=== PATIENT | male | born 1980 | race Caucasian/White ===

== ENCOUNTER 2019-03-18 13:50 | Emergency (ER) | payer OTHER ==
[2019-03-18 15:51] LABS: Absolute Lymphocytes (CBC) 2.4 K/uL (0.7-4.9); Basophils % 0.8 % (0-1.3); Hematocrit 45.7 % (39.6-49.0); Lymphocytes % 32.3 % (15.3-44.8); MPV 8.6 fL (7.6-11.3); RBC Red Blood Cell Count 5.13 M/uL (4.33-5.43)
[2019-03-18 16:11] LABS: Protime INR 0.95
[2019-03-18 16:12] LABS: ALT/SGPT 52 U/L (12-78); AST/SGOT 25 U/L (15-37); Alkaline Phosphatase 76 U/L (45-117); BUN Blood Urea Nitrogen 15 mg/dL (7-18); Bicarbonate 30 mmol/L (21-32); Bilirubin Direct 0.2 mg/dL (0-0.2); Bilirubin Total 0.6 mg/dL (0.2-1.0); Glucose Level 90 mg/dL (74-106); Magnesium 2.2 mg/dL (1.8-2.4); NT PRO-BNP 45 pg/mL (<125); Potassium 4.3 mmol/L (3.5-5.1); Protein, Total 7.8 g/dL (6.4-8.2); Sodium Level 142 mmol/L (136-145); Troponin (Emerg Dept Use Only) < 0.02 ng/mL (0.0-0.045)
--- NOTE | 2019-03-18 16:32 | RAD REPORT ---
EXAM DESCRIPTION: Evangelista Single View03/18/2019 3:45 pm CLINICAL HISTORY: Chest pain COMPARISON: none FINDINGS: The lungs appear clear of acute infiltrate. The heart is normal size IMPRESSION: No acute abnormalities displayed
--- NOTE | 2019-03-18 16:36 | ER ---
Nurse's Notes [facility] Name: Ilya Graves Age: 38 yrs Sex: Male : 1980 Arrival Date: 03/18/2019 Time: 13:54 Bed 27 Private MD: Diagnosis: Chest pain, unspecified Presentation: 03/18 13:56 Presenting complaint: Patient states: Left sided chest pain that radiates to his left aj1 shoulder for the past 2 weeks. Denies shortness of breath, palpitations, nausea. Transition of care: patient was not received from another setting of care. Onset of symptoms was 2018. Risk Assessment: Do you want to hurt yourself or someone else? Patient reports no desire to harm self or others. Initial Sepsis Screen: Does the patient meet any 2 criteria? No. Patient's initial sepsis screen is negative. Does the patient have a suspected source of infection? No. Patient's initial sepsis screen is negative. Care prior to arrival: None. 13:56 Method Of Arrival: Ambulatory [facility] 13:56 Acuity: KAJAL 3 aj1 Triage Assessment: 13:59 General: Appears in no apparent distress. comfortable, Behavior is calm, cooperative, aj1 appropriate for age. Pain: Complains of pain in anterior aspect of left upper chest Pain radiates to left trapezius Pain currently is 3 out of 10 on a pain scale. at worst was 8 out of 10 on a pain scale. Is intermittent. Pain: Quality of pain is described as tightness. Neuro: Level of Consciousness is awake, alert, obeys commands, Oriented to person, place, time, situation. Cardiovascular: Patient's skin is warm and dry. Respiratory: Airway is patent Respiratory effort is even, unlabored, Respiratory pattern is regular, symmetrical. Historical: - Allergies: 13:59 No Known Allergies; aj1 - Home Meds: 13:59 None [Active]; aj1 - PMHx: 13:59 None; aj1 - PSHx: 13:59 None; aj1 - Immunization history:: Flu vaccine is not up to date. - Social history:: Smoking status: Patient/guardian denies using tobacco. - Ebola Screening: : Patient denies travel to an Ebola-affected area in the 21 days before illness onset. Screenin:10 Abuse screen: Denies threats or abuse. Nutritional screening: No deficits noted. aa5 Tuberculosis screening: No symptoms or risk factors identified. Fall Risk None identified. Assessment: 15:10 General: Appears comfortable, Behavior is calm, cooperative. Pain: Complains of pain in aa5 mid-sternal area Pain radiates to left arm and back Pain currently is 0 out of 10 on a pain scale. Quality of pain is described as heavy, pressure, Pain began 4-5 days ago Is intermittent. Neuro: Level of Consciousness is awake, alert, obeys commands, Oriented to person, place, time, situation. Cardiovascular: Heart tones S1 S2 present Edema is absent. Rhythm is regular. Respiratory: Airway is patent Respiratory effort is even, unlabored, Respiratory pattern is regular, symmetrical, Breath sounds are clear bilaterally. Denies shortness of breath. GI: Abdomen is round non-distended, Bowel sounds present X 4 quads. Abd is soft and non tender X 4 quads. Patient currently denies nausea, vomiting. : No signs and/or symptoms were reported regarding the genitourinary system. EENT: No signs and/or symptoms were reported regarding the EENT system. Derm: Skin is pink, warm \T\ dry. Musculoskeletal: Range of motion: intact in all extremities. 16:10 Reassessment: Pt resting in bed with eyes closed, respirations even and unlabored. Pt aa5 easy to awaken to verbal stimuli. Pt states any complaints at this time. Awaiting lab results. NSR on monitor. Denies pain at this time. Call stevenson remains within reach. . Vital Signs: 13:59 BP 153 / 95; Pulse 81; Resp 18; Temp 98.2; Pulse Ox 97% on R/A; Weight 106.59 kg (R); aj1 Height 5 ft. 8 in. (172.72 cm) (R); Pain 3/10; 13:59 Body Mass Index 35.73 (106.59 kg, 172.72 cm) aj1 ED Course: 13:54 Patient arrived in ED. ag5 13:59 Triage completed. aj1 13:59 Arm band placed on. EKG completed in triage. Results shown to MD. aj1 15:10 [facility]C [facility] la1 15:10 Almas Nunez MD is Attending Physician. la1 15:10 Patient has correct armband on for positive identification. Placed in gown. Bed in low aa5 position. Call light in reach. Side rails up X2. environmental monitoring specialist on. Pulse ox on. NIBP on. 15:13 Bella Roca, RN is Primary Nurse. aa5 15:30 Inserted saline lock: 20 gauge in right antecubital area, using aseptic technique. tm3 Blood collected. 15:36 Initial lab(s) drawn, by me, sent to lab. tm3 15:46 XRAY Chest (1 view) In Process Unspecified. EDMS 16:45 IV discontinued, intact, bleeding controlled, No redness/swelling at site. Pressure aa5 dressing applied. 16:45 No provider procedures requiring assistance completed. aa5 Administered Medications: No medications were administered Outcome: 16:36 Discharge ordered by . la1 16:45 Discharged to home ambulatory, with significant other. aa5 16:45 Condition: stable 16:45 Discharge instructions given to patient, Instructed on discharge instructions, follow up and referral plans. Demonstrated understanding of instructions, follow-up care. 16:48 Patient left the ED. rn Signatures: Dispatcher [employer] EDMS Candis Ruiz, RN RN aj1 Johnson Lizarraga tm3 Almas Nunez MD MD rn Calderon, Audri, RN RN aa5 Jovan Solano, MAIL ROOM-C MAIL ROOM-Love Blunt 5 Corrections: (The following items were deleted from the chart) 18:40 17:45 IV discontinued, intact, bleeding controlled, No redness/swelling at site. aa5 Pressure dressing applied, aa5
--- NOTE | 2019-03-18 16:37 | EDPHYS ---
Physician Documentation [facility] Name: Ilya Graves Age: 38 yrs Sex: Male : 1980 Arrival Date: 03/18/2019 Time: 13:54 Bed 27 Private MD: ED Physician Almas Nunez HPI: 03/18 15:28 This 38 yrs old Male presents to ER via Ambulatory with complaints of Chest la1 Discomfort. 15:28 Onset: The symptoms/episode began/occurred 1 week(s) ago. la1 15:39 Associated signs and symptoms: Pertinent positives: chest pain, Pertinent negatives: la1 fever, shortness of breath, vomiting. Modifying factors: The patient symptoms are alleviated by nothing, the patient symptoms are aggravated by nothing. pt reports chest pain for the last week, has flown to [place] in the last month, reports he has been under a lot of stress and is not sure that it isnt related to anxiety as well. Historical: - Allergies: 13:59 No Known Allergies; aj1 - Home Meds: 13:59 None [Active]; aj1 - PMHx: 13:59 None; aj1 - PSHx: 13:59 None; aj1 - Immunization history:: Flu vaccine is not up to date. - Social history:: Smoking status: Patient/guardian denies using tobacco. - Ebola Screening: : Patient denies travel to an Ebola-affected area in the 21 days before illness onset. ROS: 15:40 Constitutional: Negative for fever, chills, and weight loss, Eyes: Negative for injury, la1 pain, redness, and discharge, ENT: Negative for injury, pain, and discharge, Neck: Negative for injury, pain, and swelling, Cardiovascular: + for chest pain that radiates to left shoulder and arm Respiratory: Negative for shortness of breath, cough, wheezing, and pleuritic chest pain, Abdomen/GI: Negative for abdominal pain, nausea, vomiting, diarrhea, and constipation, Back: Negative for injury and pain, MS/Extremity: Negative for injury and deformity, Neuro: Negative for headache, weakness, numbness, tingling, and seizure. Exam: 15:40 Constitutional: This is a well developed, well nourished patient who is awake, alert, la1 and in no acute distress. Eyes: Pupils equal round and reactive to light, extra-ocular motions intact. Periorbital areas with no swelling, redness, or edema. ENT: Mucous membranes moist. Neck: Trachea midline, no thyromegaly or masses palpated, and no cervical lymphadenopathy. Supple, full range of motion without nuchal rigidity, or vertebral point tenderness. No Meningismus. Chest/axilla: Normal chest wall appearance and motion. Nontender with no deformity. No lesions are appreciated. Cardiovascular: Regular rate and rhythm with a normal S1 and S2. No gallops, murmurs, or rubs. Normal PMI, no JVD. No pulse deficits. Respiratory: Lungs have equal breath sounds bilaterally, clear to auscultation and percussion. No rales, rhonchi or wheezes noted. No increased work of breathing, no retractions or nasal flaring. Abdomen/GI: Soft, non-tender, with normal bowel sounds. No distension or tympany. No guarding or rebound. No evidence of tenderness throughout. Neuro: Awake and alert, GCS 15, oriented to person, place, time, and situation. Normal gait. 16:19 ECG was reviewed by the Attending Physician. la1 Vital Signs: 13:59 BP 153 / 95; Pulse 81; Resp 18; Temp 98.2; Pulse Ox 97% on R/A; Weight 106.59 kg (R); aj1 Height 5 ft. 8 in. (172.72 cm) (R); Pain 3/10; 13:59 Body Mass Index 35.73 (106.59 kg, 172.72 cm) aj1 MDM: 15:10 Patient medically screened. la1 16:33 Data reviewed: vital signs, nurses notes, lab test result(s), EKG, radiologic studies, la1 plain films, I have discussed the patient's presentation/case with the attending Emergency Department Physician; and as a result, I will discharge patient. Data interpreted: Pulse oximetry: on room air is 99 %. Interpretation: normal. Test interpretation: by ED physician or midlevel provider: ECG, plain radiologic studies. Counseling: I had a detailed discussion with the patient and/or guardian regarding: the presence of at least one elevated blood pressure reading (>120/80) during this emergency department visit, lab results, radiology results, the need for outpatient follow up, a family practitioner. Special discussion: Based on the patient's history, exam, and Dx evaluation, there is no indication for emergent intervention or inpatient Tx. It is understood by the patient/guardian that if the Sx's persist or worsen they need to return immediately for re-evaluation. I have referred the patient to see his PCP for further evaluation of high blood pressure. ED course: Pt with negative trop, normal ECG, no acute findings on CXR, DDIMER WNL with chest pain for one week. Pt to FU with PCP on , instructed to return to ED with worsening of sx. 03/18 15:24 Order name: Basic Metabolic Panel; Complete Time: 16:15 la03/18 15:24 Order name: CBC with Diff; Complete Time: 16:15 la03/18 15:24 Order name: LFT's; Complete Time: 16:15 la03/18 15:24 Order name: Magnesium; Complete Time: 16:15 la03/18 15:24 Order name: NT PRO-BNP; Complete Time: 16:15 la03/18 15:24 Order name: PT-INR; Complete Time: 16:15 la03/18 15:05 Order name: EKG Electrocardiogram EDOH 03/18 15:24 Order name: Troponin (emerg Dept Use Only); Complete Time: 16:15 la03/18 15:24 Order name: XRAY Chest (1 view) la 03/18 15:24 Order name: EKG; Complete Time: 15:25 la03/18 15:24 Order name: Cardiac monitoring; Complete Time: 15:27 03/18 15:24 Order name: EKG - Nurse/Tech; Complete Time: 16:07 03/18 15:24 Order name: IV Saline Lock; Complete Time: 16:07 la03/18 15:24 Order name: DD; Complete Time: 16:15 03/18 15:24 Order name: Labs collected and sent; Complete Time: 16:07 03/18 15:24 Order name: O2 Per Protocol; Complete Time: 16:07 03/18 15:24 Order name: O2 Sat Monitoring; Complete Time: 16:07 la EC:19 Rate is 68 beats/min. Rhythm is regular. QRS [place] is Normal. FL interval is normal. QRS la1 interval is normal. QT interval is normal. No Q waves. T waves are Normal. No ST changes noted. Clinical impression: Normal ECG. Reviewed by me. Administered Medications: No medications were administered Disposition: 17:45 Co-signature as Attending Physician, Almas Nunez MD. rn Disposition: 03/18/19 16:36 Discharged to Home. Impression: Chest pain, unspecified. - Condition is Stable. - Discharge Instructions: Nonspecific Chest Pain, Aspirin and Your Heart. - Work release form, Medication Reconciliation Form, Thank You Letter form. - Follow up: Private Physician; When: 2 - 3 days; Reason: Recheck today's complaints, Re-evaluation by your physician. - Problem is new. - Symptoms have improved. Signatures: Dispatcher [employer] EDCandis Boggs RN RN aj1 Almas Nunez MD MD rn Jovan Solano, NUT PACKER-C NUT PACKER-Cla1 Corrections: (The following items were deleted from the chart) 16:48 16:36 03/18/2019 16:36 Discharged to Home. Impression: Chest pain, unspecified. rn Condition is Stable. Forms are Medication Reconciliation Form, Thank You Letter, Antibiotic Education, Prescription Opioid Use. Follow up: Private Physician; When: 2 - 3 days; Reason: Recheck today's complaints, Re-evaluation by your physician. Problem is new. Symptoms have improved. la1
[2019-03-18 18:45] VITALS: BP 153/95; TEMP 98.2; O2SAT 97
--- NOTE | 2019-03-19 06:21 | EKG ---
Test Date: 2019-03-18 Test Time: 14:05:39 Travel Trailer Components Assembler: VINAY MEASUREMENT RESULTS: Intervals: Rate: 68 NM: 142 QRSD: 86 QT: 374 QTc: 397 [place]: P: 31 NM: 142 QRS: 86 T: 31 INTERPRETIVE STATEMENTS: Normal sinus rhythm Normal ECG No previous ECG available for comparison Electronically Signed On 03-19-19 06:20:42 CASINO GAMING INSPECTOR by Fred Galdamez
== END 2019-03-18 16:48 | disposition home or self-care (01) ==
LOC: ER 13:50
DX: R07.9 Chest pain, unspecified (principal)
CPT/HCPCS: 36415; 71045; 80048; 80076; 83735; 83880; 84484; 85025; 85379; 85610; 93005; 99284

== ENCOUNTER 2020-07-19 15:20 | Emergency (ER) | payer OTHER ==
--- OUTSIDE RECORDS SUMMARY | 2020-07-19 15:22 | XMS REPORT | Continuity of Care Document ---
:1980 Author Organization [facility] t Address [address] [place] [address] Care Team Providers Name Role Phone Tylor MCCORMACK, [place] Attending Clinician Provider, Urgent Care Attending Clinician Unavailable Doctor Unassigned, Name Attending Clinician Unavailable Ami MCCORMACK, T Attending Clinician Problems This patient has no known problems. Allergies, Adverse Reactions, Alerts This patient has no known allergies or adverse reactions. Medications This patient has no known medications. Procedures This patient has no known procedures. Encounters Start End Encounter Admission Attending Care Care Encounter Source Date/Time Date/Time Type Type Clinicians Facility Department ID 2020-07-19 2020-07-19 Telephone TARA Snider [id number] 00:00:00 00:00:00 [facility] [id number] [place] [id number] Professio [phone] nal 044 Office Building One 2020-07-05 2020-07-05 Urgent Provider, [facility] [id number] 16:40:01 17:00:01 [facility] [id number] Care [place] [id number] Professio [phone] nal 044 Office Building One 2020-07-05 2020-07-05 Letter Doctor HERNANDEZ [id number] 00:00:00 00:00:00 (Out) Un[facility]igned[facility] [id number] [facility] [id number] [id number] 2019-08-27 2019-08-27 [facility] [id number] 08:23:25 08:53:25 ne Visit Pinky Peralta [place] [id number] [place] [id number] Professio [phone] [address] 2019-08-15 2019-08-15 Orders Doctor MARY [id number] 00:00:00 00:00:00 Only Unassigned, [place] [id number] [place] [facility] [phone] 009 2019-08-04 2019-08-04 [facility] [id number] 00:00:00 00:00:00 [place] A [place] [id number] [place] [id number] Professio [phone] [address] 2019-08-03 2019-08-03 [facility] [id number] 00:00:00 00:00:00 [place] A [place] [id number] [place] [id number] Professio [phone] [address] 2019-08-01 2019-08-01 Telephone Tylor [place] [id number] 00:00:00 00:00:00 [facility] [id number] [facility] [id number] UNIT [phone] [facility] 2019-07-16 2019-07-16 Orders Doctor MARY [id number] 00:00:00 00:00:00 Only Unassigned, [facility] [id number] [facility] [id number] [id number] 2019-07-03 2019-07-03 Orders Doctor MARY [id number] 00:00:00 00:00:00 Only Unassigned, [facility] [id number] [facility] [phone] [id number] 2019-06-19 2019-06-19 Orders Doctor MARY [id number] 00:00:00 00:00:00 Only Unassigned, [facility] [id number] [facility] [id number] [id number] 2019-06-17 2019-06-17 Telephone Ami [facility] [id number] 00:00:00 00:00:00 Strahil T [place] [id number] [place] [id number] Professio [phone] nal 085 Building 2019-05-28 2019-05-28 [facility] [id number] 14:21:56 14:51:56 Visit Strahil T [place] [id number] [place] [id number] Professio [phone] nal 5 Building Results This patient has no known results.
--- NOTE | 2020-07-19 16:31 | RAD REPORT ---
EXAM DESCRIPTION: RAD - Chest Pa And Lat (2 Views) - 07/19/2020 4:21 pm CLINICAL HISTORY: COUGH Chest pain. COMPARISON: <Comparisons> FINDINGS: Mild bilateral interstitial lung opacities are present, greatest in the left base, most co mpatible with pulmonary infection/ bronchitis. The heart is normal in size. No displaced fractures.
--- NOTE | 2020-07-19 17:46 | ER ---
Nurse's Notes [facility] Name: Ilya Graves Age: 39 yrs Sex: Male : 1980 Arrival Date: 07/19/2020 Time: 15:23 Bed 26 Private MD: Hamilton Snider Diagnosis: Coronavirus infection, unspecified Presentation: 07/19 15:41 Chief complaint: Patient states: Has covid for 10 days. Coughed up blood today, his 1 doctor sent him in for eval. Finished Zpack. 1 day of steroids left. Still has fever off/on. Coronavirus screen: Client denies travel out of the [place] in the last 14 days. cough unrelated to allergies, difficulty breathing, fatigue, fever, headache, loss of taste or smell, Client presents with at least one sign or symptom that may indicate coronavirus-19. Standard/surgical mask placed on the client. Ebola Screen: Patient denies travel to an Ebola-affected area in the 21 days before illness onset. Initial Sepsis Screen: Does the patient meet any 2 criteria? HR > 90 bpm. No. Patient's initial sepsis screen is negative. Does the patient have a suspected source of infection? Yes: Productive cough/pneumonia. Risk Assessment: Do you want to hurt yourself or someone else? Patient reports no desire to harm self or others. Onset of symptoms was July 08, 2020. 15:41 Method Of Arrival: Ambulatory [facility] 15:41 Acuity: KAJAL 3 ll1 Historical: - Allergies: 15:45 No Known Allergies; ll1 - PMHx: 15:45 Sleep Apnea; mono; ll1 - PSHx: 15:45 None; ll1 - Immunization history:: Flu vaccine is not up to date. - Social history:: Smoking status: Patient denies any tobacco usage or history of. Vital Signs: 15:41 BP 157 / 92; Pulse 105; Resp 18; Temp 98.8; Pulse Ox 94% on R/A; Weight 102.06 kg; ll1 Height 5 ft. 9 in. (175.26 cm); Pain 1/10; 15:41 Body Mass Index 33.23 (102.06 kg, 175.26 cm) 1 ED Course: 15:23 Patient arrived in ED. mr 15:24 Hamilton Snider is Private Physician. mr 15:43 Triage completed. ll1 15:45 Arm band placed on. ll1 16:21 Chest Pa And Lat (2 Views) XRAY In Process Unspecified. EDMS 17:06 Bouchra Jackman FNP-C [facility]. kb 17:06 Almas Nunez MD is Attending Physician. kb 17:23 Liane Hare, RN is Primary Nurse. iw Administered Medications: No medications were administered Outcome: 17:44 Discharge ordered by MD. kb 18:06 Discharged to home ambulatory. iw 18:06 Condition: good 18:06 Discharge instructions given to patient, Instructed on discharge instructions, follow up and referral plans. Demonstrated understanding of instructions, follow-up care, medications, Prescriptions given X 1. 18:06 Patient left the ED. iw Signatures: Dispatcher [employer] EDAL Bouchra Jackman FNP-C FNP-Eloy Magali Archer Liane Hare, RN RN iw Dago Guerrero RN RN ll1
--- NOTE | 2020-07-19 17:46 | EDPHYS ---
Physician Documentation [facility] Name: Ilya Graves Age: 39 yrs Sex: Male : 1980 Arrival Date: 07/19/2020 Time: 15:23 Bed 26 Private MD: Hamilton Snider ED Physician Almas Nunez HPI: 07/19 17:54 This 39 yrs old Male presents to ER via Ambulatory with complaints of COVID+, kb Cough. 17:54 The patient or guardian reports cough, that is intermittent, described as mild, flu kb symptoms, low-grade fever, myalgias. Onset: The symptoms/episode began/occurred 10 day(s) ago. Severity of symptoms: At their worst the symptoms were moderate, in the emergency department the symptoms are unchanged. Modifying factors: The symptoms are alleviated by nothing, the symptoms are aggravated by nothing. Associated signs and symptoms: Pertinent positives: fever. The patient has not experienced similar symptoms in the past. The patient has not recently seen a physician. Pt reports he has had COVID for 10 days. States he still has fever at night and this morning coughed up some phlem the had blood in it. States he wanted to make sure everything was ok. Denies shortness of breath. STates he really isn't coughing much. Main complaint today is fever that has continued. States he feels pretty good during the day, but has body aches, chills and fever all night. Pt has been monitoring O2 and it stays between 93-95%.. Historical: - Allergies: 15:45 No Known Allergies; ll1 - PMHx: 15:45 Sleep Apnea; mono; ll1 - PSHx: 15:45 None; ll1 - Immunization history:: Flu vaccine is not up to date. - Social history:: Smoking status: Patient denies any tobacco usage or history of. ROS: 17:57 Cardiovascular: Negative for chest pain, palpitations, and edema, Abdomen/GI: Negative kb for abdominal pain, nausea, vomiting, diarrhea, and constipation, MS/Extremity: Negative for injury and deformity, Skin: Negative for injury, rash, and discoloration, Neuro: Negative for headache, weakness, numbness, tingling, and seizure. 17:57 Constitutional: Positive for body aches, chills, fever. 17:57 Respiratory: Positive for cough. Exam: 17:57 Constitutional: This is a well developed, well nourished patient who is awake, alert, kb and in no acute distress. Head/Face: Normocephalic, atraumatic. Cardiovascular: Regular rate and rhythm with a normal S1 and S2. No gallops, murmurs, or rubs. No pulse deficits. Respiratory: Respirations even and unlabored. No increased work of breathing, no retractions or nasal flaring. Skin: Warm, dry with normal turgor. Normal color. MS/ Extremity: Pulses equal, no cyanosis. Neurovascular intact. Full, normal range of motion. Neuro: Awake and alert, GCS 15, oriented to person, place, time, and situation. Moves all extremities. Normal gait. 17:57 Respiratory: Breath sounds: are clear throughout. Vital Signs: 15:41 BP 157 / 92; Pulse 105; Resp 18; Temp 98.8; Pulse Ox 94% on R/A; Weight 102.06 kg; ll1 Height 5 ft. 9 in. (175.26 cm); Pain 1/10; 15:41 Body Mass Index 33.23 (102.06 kg, 175.26 cm) ll1 MDM: 17:07 Patient medically screened. kb 17:53 Data reviewed: vital signs, nurses notes. Data interpreted: Pulse oximetry: on room air kb is 94 %. Interpretation: normal. Counseling: I had a detailed discussion with the patient and/or guardian regarding: the historical points, exam findings, and any diagnostic results supporting the discharge/admit diagnosis, radiology results, the need for outpatient follow up, a family practitioner, to return to the emergency department if symptoms worsen or persist or if there are any questions or concerns that arise at home. 07/19 15:51 Order name: Chest Pa And Lat (2 Views) XRAY; Complete Time: 16:47 kb Administered Medications: No medications were administered Disposition: 18:07 Co-signature as Attending Physician, Almas Nunez MD. rn Disposition: 07/19/20 17:44 Discharged to Home. Impression: Coronavirus infection, unspecified. - Condition is Stable. - Discharge Instructions: Viral Respiratory Infection, [id number], COVID-19. - Prescriptions for Albuterol Sulfate 90 mcg/actuation - inhale 1-2 puff by INHALATION route every 4-6 hours; 1 Inhaler. - Medication Reconciliation Form, Thank You Letter, Antibiotic Education, Prescription Opioid Use form. - Follow up: Emergency Department; When: As needed; Reason: Worsening of condition. Follow up: Private Physician; When: 2 - 3 days; Reason: Recheck today's complaints, Continuance of care, Re-evaluation by your physician. Signatures: Dispatcher [employer] EDMS Bouchra Jackman, SPEECH AND LANGUAGE SPECIALIST-C SPEECH AND LANGUAGE SPECIALIST-Ckb Liane Hare, NAVNEET RN iw Almas Nunez MD MD rn Lewis, NAVNEET Loza RN ll1 Corrections: (The following items were deleted from the chart) 17:57 17:54 Pt reports he has had COVID for 10 days. States he still has fever at night and kb this morning coughed up some phlem the had blood in it. States he wanted to make sure everything was ok. Denies shortness of breath. STates he really isn't coughing much. Main complaint today is fever that has continued. States he feels pretty good during the day, but has body aches, chills and fever all night.. kb 18:06 17:44 07/19/2020 17:44 Discharged to Home. Impression: Coronavirus infection, iw unspecified. Condition is Stable. Forms are Medication Reconciliation Form, Thank You Letter, Antibiotic Education, Prescription Opioid Use. Follow up: Emergency Department; When: As needed; Reason: Worsening of condition. Follow up: Private Physician; When: 2 - 3 days; Reason: Recheck today's complaints, Continuance of care, Re-evaluation by your physician. kb
[2020-07-19 18:14] VITALS: BP 157/92; TEMP 98.8; O2SAT 94
== END 2020-07-19 18:06 | disposition home or self-care (01) ==
LOC: ER 15:20
DX: U07.1 COVID-19 (principal); G47.30 Sleep apnea, unspecified
CPT/HCPCS: 71046; 99283